=== PATIENT | female | born 1995 | race Caucasian/White ===

== ENCOUNTER 2019-05-20 06:38 | Emergency (ER) | payer OTHER, BC ==
[~2019-05-20] VITALS: Ht 167.6 cm; Wt 79.0 kg
[2019-05-20 06:54] VITALS: BP 133/90
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
[2019-05-20] MEDS ORDERED: ACETAMINOPHEN 500 MG TABLET PO ONE (07:15)
== END 2019-05-20 07:28 | disposition home or self-care (01) ==
LOC: ER 06:38
DX: O29.41 Spinal and epidural anesthesia induced headache during pregnancy, first trimester (principal); S09.90XA Unspecified injury of head, initial encounter; R00.2 Palpitations; Z88.0 Allergy status to penicillin; Z3A.01 Less than 8 weeks gestation of pregnancy; V49.9XXA Car occupant (driver) (passenger) injured in unspecified traffic accident, initial encounter; Y93.89 Activity, other specified; Y92.413 State road as the place of occurrence of the external cause; Y99.8 Other external cause status
CPT/HCPCS: 99282